=== PATIENT | female | born 1960 | race Caucasian/White ===

== ENCOUNTER 2023-06-30 14:22 | Emergency (ER) | payer SELFPAY ==
[~2023-06-30] VITALS: Ht 160 cm; Wt 63.6 kg
[2023-06-30] MEDS: ASPIRIN 81MG CHEW TABLET PO ONE (14:45)
[2023-06-30 14:46] LABS: BASO % 0.3 % (0.0-1.0); EOS # 0.2 10^3/uL (0.0-0.5); EOS % 1.8 % (0.0-3.0); HEMATOCRIT 48.3 % (36.0-47.0); HEMOGLOBIN 16.1 g/dl (12.0-15.5); LYMPH # 2.5 10^3/uL (1.5-5.0); LYMPH % 21.4 % (24.0-44.0); MEAN CORPUSCULAR HGB CONC 33.3 g/dl (32.0-36.5); MEAN CORPUSCULAR VOLUME 93.1 fl (80.0-96.0); MONO # 1.4 10^3/uL (0.0-0.8); MONO % 11.9 % (2.0-8.0); NEUTROPHILS # 7.6 10^3/uL (1.5-8.5); NEUTROPHILS % 64.3 % (36.0-66.0); PLATELET COUNT, AUTOMATED 280 10^3/uL (150-450); RED BLOOD COUNT 5.19 10^6/uL (4.00-5.40); WHITE BLOOD COUNT 11.8 10^3/uL (4.0-10.0)
[2023-06-30] MEDS: NITROGLYCERIN 0.4MG SUBL TABLET SL PRN (14:46)
[2023-06-30 14:57] LABS: INR 0.97; PARTIAL THROMBOPLASTIN TIME 27.1 SECONDS (24.8-34.2); PROTHROMBIN TIME 12.6 SECONDS (12.5-14.5)
[2023-06-30 15:07] VITALS: BP 112/66
[2023-06-30 15:08] LABS: LIPASE 29 U/L (12-53)
[2023-06-30 15:10] LABS: ALBUMIN 3.5 G/DL (3.2-5.2); ALKALINE PHOSPHATASE 182 U/L (46-116); ALT/SGPT 34 U/L (7.0-40); AST/SGOT 40 U/L (<34); BILIRUBIN,DIRECT 0.3 MG/DL (<0.4); BILIRUBIN,TOTAL 0.7 MG/DL (0.3-1.2); BLOOD UREA NITROGEN 8 MG/DL (9-23); CALCIUM LEVEL 9.3 MG/DL (8.3-10.6); CARBON DIOXIDE LEVEL 27 MMOL/L (20-31); CHLORIDE LEVEL 104 MMOL/L (98-107); CPK CREATINE PHOSPHOKINASE 142 U/L (34-145); CREATININE FOR GFR 0.59 MG/DL (0.55-1.30); GLOMERULAR FILTRATION RATE > 60.0 (>45); GLUCOSE, FASTING 111 MG/DL (74-106); POTASSIUM SERUM 4.2 MMOL/L (3.5-5.1); SODIUM LEVEL 139 MMOL/L (136-145); TOTAL PROTEIN 7.1 G/DL (5.7-8.2)
[2023-06-30 15:11] LABS: CK-MB VALUE MASS < 1.0 NG/ML (<3.6)
[2023-06-30 15:14] LABS: THYROID STIMULATING HORMONE 1.802 uIU/ML (0.55-4.78)
[2023-06-30 15:15] LABS: FREE T4 0.98 NG/DL (0.89-1.76)
[2023-06-30] MEDS ORDERED: ISOVUE-370 76% 100ML VIAL As Ordered ONE (15:24)
[2023-06-30 15:59] LABS: CK-MB VALUE MASS < 1.0 NG/ML (<3.6)
[2023-06-30 16:01] LABS: CPK CREATINE PHOSPHOKINASE 131 U/L (34-145); MB/CK RELATIVE INDEX 0.76 (< OR =4)
[2023-06-30] MEDS: KETOROLAC 30 MG/ML 1ML VIAL IV ONE (16:01)
[2023-06-30] MEDS: LIDOCAINE 5% (LIDODERM) PATCH TD ONE (16:22)
[2023-06-30 17:15] VITALS: BP 115/69
[2023-06-30 17:20] VITALS: TEMP 98.7; O2SAT 96
[2023-06-30] MEDS ORDERED: LIDO5DIS41 TD (17:21)
== END 2023-06-30 17:49 | disposition home or self-care (01) ==
LOC: M ED 14:22
DX: R07.9 Chest pain, unspecified (principal); I45.10 Unspecified right bundle-branch block; F17.210 Nicotine dependence, cigarettes, uncomplicated; F10.10 Alcohol abuse, uncomplicated; Z79.899 Other long term (current) drug therapy
CPT/HCPCS: 71045; 71275; 80048; 80076; 82550; 82553; 83690; 83880; 84439; 84443; 84484; 85025; 85610; 85730; 87486; 87581; 87633; 87798; 93005; 93041; 94760; 96374; 99285; J1885; Q9967

== ENCOUNTER 2023-09-27 13:35 | Emergency (ER) | payer SELFPAY ==
[~2023-09-27] VITALS: Ht 157.5 cm; Wt 58.9 kg
[~2023-09-27 13:35] MED LIST: LIDO5DIS41 TD
[2023-09-27 16:37] VITALS: BP 130/73; TEMP 97.2; O2SAT 97
== END 2023-09-27 16:38 | disposition home or self-care (01) ==
LOC: M ED 13:35
DX: U07.1 COVID-19 (principal)

== ENCOUNTER 2023-10-13 18:15 | Emergency (ER) | payer SELFPAY ==
[~2023-10-13] VITALS: Ht 157.5 cm; Wt 58.1 kg
[2023-10-13 22:15] VITALS: BP 115/76; TEMP 97.8; O2SAT 100
== END 2023-10-13 22:21 | disposition home or self-care (01) ==
LOC: M ED 18:15
DX: R76.12 Nonspecific reaction to cell mediated immunity measurement of gamma interferon antigen response without active tuberculosis (principal); K21.9 Gastro-esophageal reflux disease without esophagitis; R51.9 Headache, unspecified; F17.200 Nicotine dependence, unspecified, uncomplicated